=== PATIENT | male | born 1985 | race Two or more races ===

== ENCOUNTER 2021-04-26 12:55 | Emergency (ER) | payer MEDICAID ==
[~2021-04-26] VITALS: Ht 188 cm; Wt 111.4 kg
[2021-04-26] MEDS ORDERED: QUET150T2 PO (14:46)
[2021-04-26 15:43] VITALS: BP 122/65
== END 2021-04-26 15:48 | disposition home or self-care (01) ==
LOC: ER 12:56
DX: F31.9 Bipolar disorder, unspecified (principal); E86.0 Dehydration; F15.90 Other stimulant use, unspecified, uncomplicated; Z86.14 Personal history of Methicillin resistant Staphylococcus aureus infection; Z72.89 Other problems related to lifestyle; Z88.0 Allergy status to penicillin; Z79.899 Other long term (current) drug therapy
CPT/HCPCS: 99284